=== PATIENT | female | born 1940 | race Caucasian/White ===

== ENCOUNTER 2017-04-19 12:07 | Emergency (ER) | payer MEDICARE ==
[~2017-04-19] VITALS: Ht 157.5 cm; Wt 61.2 kg
[~2017-04-19 12:07] MED LIST: ARTHRITIS PAIN650 MG PO; ASPI81CH; ATEN25; B-121500 MCG PO; CALCAVITDA PO; CARI350; CARI350 PO; CODACE30 PO; DIPATR PO; ERGO400 PO; FERR325 PO; FISH1000 PO; GABA100 PO; GLIM4 PO; GLYB5; GUAI600T33 PO; HYDR1TAB94 PO; IPRA.03NI; LISI20; LOSARTAN POTAS100 MG PO; LOVA40; METF500; METF850 PO; METO25 PO; Multiple Vitam1 EAC1 PO; Nortriptyline H10 MG PO; OLME20; OMEP20ER PO; PAIN RELIEVER500 MG PO; PARO20; PAXIL40 MG PO; PHENA200 PO; PROACE100; PROACE100 PO; PROM25 PO; ROSI4; RXPHEN200 PO; RXSULTRIDS PO; SULTRIDS PO; Simvastatin20 MG PO; TURMERIC500 MG PO
== END 2017-04-19 14:30 | disposition home or self-care (01) ==
LOC: ER 12:07
DX: S06.0X9A Concussion with loss of consciousness of unspecified duration, initial encounter (principal); S00.11XA Contusion of right eyelid and periocular area, initial encounter; E11.9 Type 2 diabetes mellitus without complications; Z90.49 Acquired absence of other specified parts of digestive tract; Z90.710 Acquired absence of both cervix and uterus; W19.XXXA Unspecified fall, initial encounter
CPT/HCPCS: 70450; 99284

== ENCOUNTER → 2018-05-27 | Outpatient (CLI) | payer MEDICARE | END | disposition home or self-care (01) | LOC: PLD 07:43 → LAB SHORT 07:43 | DX: D04.71 Carcinoma in situ of skin of right lower limb, including hip (principal) | CPT/HCPCS: 88305 ==

== ENCOUNTER 2018-08-12 22:28 | Emergency (ER) | payer MEDICARE ==
[~2018-08-12] VITALS: Ht 154.9 cm; Wt 59.0 kg
[2018-08-12 23:11] LABS: BASOPHILS ABSOLUTE AUTO 0.05 K/mm3 (0.00-0.23); BASOPHILS PERCENT AUTO 1 % (0-2); EOSINOPHILS ABSOLUTE AUTO 0.01 K/mm3 (0.00-0.68); EOSINOPHILS PERCENT AUTO 0 % (0-6); Hematocrit 34.2 % (33.0-51.0); Hemoglobin 11.2 g/dL (11.5-16.0); IMMATURE GRAN ABSOLUTE AUTO 0.08 K/mm3 (0.00-0.10); IMMATURE GRAN PERCENT AUTO 1 % (0-1); LYMPHOCYTES ABSOLUTE AUTO 0.26 K/mm3 (0.84-5.20); LYMPHOCYTES PERCENT AUTO 3 % (21-46); MONOCYTES ABSOLUTE AUTO 0.74 K/mm3 (0.16-1.47); MONOCYTES PERCENT AUTO 8 % (4-13); Mean Corpuscular HGB 32.4 pg (26.0-34.0); Mean Corpuscular HGB Conc 32.7 g/dL (31.5-36.5); Mean Corpuscular Volume 99 fL (80-100); Mean Platelet Volume 9.9 fL (9.1-12.4); NEUTROPHILS ABSOLUTE AUTO 7.93 K/mm3 (1.96-9.15); NEUTROPHILS PERCENT AUTO 87 % (41-73); Platelet Count 307 K/mm3 (150-400); RDW Coefficient Variation 13.4 % (11.7-14.2); RDW Standard Deviation 48.4 fL (35.1-46.3); Red Blood Cell Count 3.46 M/mm3 (3.80-5.20); White Blood Cell Count 9.07 K/mm3 (4.00-11.30)
[2018-08-12 23:30] LABS: Alanine Aminotransfer (ALT/SGP 56 U/L (12-78); Albumin/Globulin Ratio 1.1 (0.8-1.8); Alk Phos 115 U/L (50-136); Anion Gap 12 mmol/L (6-16); Aspartate Aminotrans (AST/SGOT 27 U/L (12-37); Bilirubin, Total 0.3 mg/dL (0.1-1.0); Blood Urea Nitrogen 28 mg/dL (8-24); Bun/Creatinine Ratio 32.9 (12.0-20.0); CO2, Blood 19 mmol/L (21-32); Calcium, Blood 8.7 mg/dL (8.5-10.1); Chloride, Blood 108 mmol/L (98-108); Creatinine, Blood 0.85 mg/dL (0.40-1.00); Globulin, Blood 3.7 g/dL (2.2-4.0); Glomerular Filtration Rate >60 (60-); Glucose, Blood 262 mg/dL (70-99); Potassium, Blood 4.2 mmol/L (3.5-5.5); Sodium, Blood 139 mmol/L (136-145); Total Protein, Blood 7.7 g/dL (6.4-8.2)
[2018-08-12] MEDS ORDERED: GLIM4 PO (23:51)
[2018-08-12] MEDS ORDERED: METO25ER PO (23:51)
[2018-08-12] MEDS ORDERED: LOSA50 PO (23:51)
[2018-08-12] MEDS ORDERED: VENL75ER PO (23:51)
[2018-08-12] MEDS ORDERED: METF500 PO (23:51)
[2018-08-12] MEDS ORDERED: SIMV10 PO (23:52)
[2018-08-12] MEDS ORDERED: OMEPRAZOLE MAGN20 MG PO (23:52)
[2018-08-12] MEDS ORDERED: Nortriptyline H10 MG PO (23:52)
[2018-08-12] MEDS ORDERED: GABA100 PO (23:52)
[2018-08-12] MEDS ORDERED: Primidone50 MG PO (23:53)
[2018-08-12] MEDS ORDERED: MELO7.5 PO (23:53)
[2018-08-12] MEDS ORDERED: LATANOPROST2.5 ML BOTHEYES (23:53)
[2018-08-12] MEDS ORDERED: ASPI81CH PO (23:53)
[2018-08-12] MEDS ORDERED: Multivitamin1 EAC1 PO (23:54)
[2018-08-12] MEDS ORDERED: Ferrous Sulfat325 M2 PO (23:54)
[2018-08-12] MEDS ORDERED: FISH OIL 1,0001 EAC1 PO (23:55)
[2018-08-12] MEDS ORDERED: CHOL10002 PO (23:55)
[2018-08-12] MEDS ORDERED: VITAMIN B125000 MCG PO (23:56)
[2018-08-12] MEDS ORDERED: BIOTIN5000 MCG PO (23:56)
[2018-08-13] MEDS ORDERED: ONDA4ODT MM (02:02)
[2018-08-13] MEDS ORDERED: METO5A PO (19:51)
[2018-08-13] MEDS ORDERED: Cipro500 MG PO (19:51)
== END 2018-08-13 03:11 | disposition home or self-care (01) ==
LOC: ER 22:28
PROVIDERS: Physician Assistant
DX: R11.2 Nausea with vomiting, unspecified (principal); R19.7 Diarrhea, unspecified; E11.9 Type 2 diabetes mellitus without complications; E78.5 Hyperlipidemia, unspecified; I10 Essential (primary) hypertension; K21.9 Gastro-esophageal reflux disease without esophagitis
CPT/HCPCS: 80053; 82947; 83690; 85025; 93005; 93010; 96361; 96374; 96375; 99284-25; A9270-GY; J2405; J2765; J7120

== ENCOUNTER 2018-09-15 06:40 | Day surgery (SDC) | payer MEDICARE ==
[~2018-09-15] VITALS: Ht 154.9 cm; Wt 61.0 kg
[~2018-09-15 06:40] MED LIST changes: +ASPI81CH PO; +BIOTIN5000 MCG PO; +CHOL10002 PO; +Cipro500 MG PO; +FISH OIL 1,0001 EAC1 PO; +Ferrous Sulfat325 M2 PO; +LATANOPROST2.5 ML BOTHEYES; +LOSA50 PO; +MELO7.5 PO; +METF500 PO; +METO25ER PO; +METO5A PO; +Micro-K10 MEQ PO; +Multivitamin1 EAC1 PO; +OMEPRAZOLE MAGN20 MG PO; +ONDA4ODT MM; +Primidone50 MG PO; +SIMV10 PO; +VENL75ER PO; +VITAMIN B125000 MCG PO
--- NOTE | 2018-09-15 07:18 | NUR ---
09/15/18 0718 Sandee Wood LATE ENTRY: NOTIFIED DR SANCHES OF [facility] [place] [facility] AT 0707, ORDERS WERE GIVEN AND ADMINISTERED SEE EMAR.
== END 2018-09-15 08:35 | disposition home or self-care (01) ==
LOC: ORSCSDS 06:40
PROVIDERS: Ophthalmology
PROC: 08RK3JZ Replacement of Left Lens with Synthetic Substitute, Percutaneous Approach (ICD-10-PCS; principal; 2018-09-15 08:00)
DX: H25.12 Age-related nuclear cataract, left eye (principal); I10 Essential (primary) hypertension; G47.33 Obstructive sleep apnea (adult) (pediatric); E11.9 Type 2 diabetes mellitus without complications; K21.9 Gastro-esophageal reflux disease without esophagitis; Z79.899 Other long term (current) drug therapy; Z79.82 Long term (current) use of aspirin
CPT/HCPCS: 82947; J2001; J2250; J3010; J3301; J7799; V2632

== ENCOUNTER 2018-09-29 07:00 | Day surgery (SDC) | payer MEDICARE ==
[~2018-09-29] VITALS: Ht 154.9 cm; Wt 59.9 kg
== END 2018-09-29 09:13 | disposition home or self-care (01) ==
LOC: ORSCSDS 07:00
PROVIDERS: Ophthalmology
PROC: 08RJ3JZ Replacement of Right Lens with Synthetic Substitute, Percutaneous Approach (ICD-10-PCS; principal; 2018-09-29 08:30)
DX: H25.11 Age-related nuclear cataract, right eye (principal); I10 Essential (primary) hypertension; E11.9 Type 2 diabetes mellitus without complications; Z79.899 Other long term (current) drug therapy; Z79.82 Long term (current) use of aspirin
CPT/HCPCS: 82947; J2001; J2250; J3010; J3301; J7120; V2632

== ENCOUNTER 2019-08-04 07:20 | Day surgery (SDC) | payer MEDICARE ==
[~2019-08-04] VITALS: Ht 154.9 cm; Wt 62.6 kg
--- NOTE | 2019-08-04 07:58 | NUR ---
PT ADMITTED TO [facility]. AGREES WITH PLANNED SURGERY. LUNG SOUNDS CLEAR.
--- NOTE | 2019-08-04 10:35 | NUR ---
Patient up to Ambulate independently. Gait steady. Discharge instructions reviewed with patient. Patient verbalizes understanding. Copy given to patient to take home. Patient States Post-Procedure ride home has been arranged. Discharged via wheelchair to private car for ride home.
--- NOTE | 2019-08-05 10:11 | NUR ---
08/05/19 1011 Zohra Mckenzie VERIFICATIONS: EDIT CHART.
== END 2019-08-04 10:48 | disposition home or self-care (01) ==
LOC: ORSCMMR 07:20 → ORD 09:00 → ORSCMMR 09:00
PROVIDERS: Orthopaedic Surgery
PROC: 01N50ZZ Release Median Nerve, Open Approach (ICD-10-PCS; principal; 2019-08-04 09:00)
DX: G56.01 Carpal tunnel syndrome, right upper limb (principal); I10 Essential (primary) hypertension; E11.9 Type 2 diabetes mellitus without complications; G47.33 Obstructive sleep apnea (adult) (pediatric); J45.909 Unspecified asthma, uncomplicated; Z79.899 Other long term (current) drug therapy; Z79.82 Long term (current) use of aspirin
CPT/HCPCS: 82947; J2704; J7120

== ENCOUNTER 2019-11-30 19:17 | Emergency (ER) | payer MEDICARE ==
[~2019-11-30] VITALS: Ht 154.9 cm; Wt 61.2 kg
[2019-11-30 19:50] LABS: BASOPHILS ABSOLUTE AUTO 0.09 K/mm3 (0.00-0.23); BASOPHILS PERCENT AUTO 1 % (0-2); EOSINOPHILS ABSOLUTE AUTO 0.37 K/mm3 (0.00-0.68); EOSINOPHILS PERCENT AUTO 5 % (0-6); Hematocrit 30.9 % (33.0-51.0); Hemoglobin 10.2 g/dL (11.5-16.0); IMMATURE GRAN ABSOLUTE AUTO 0.13 K/mm3 (0.00-0.10); IMMATURE GRAN PERCENT AUTO 2 % (0-1); LYMPHOCYTES ABSOLUTE AUTO 1.92 K/mm3 (0.84-5.20); LYMPHOCYTES PERCENT AUTO 23 % (21-46); MONOCYTES ABSOLUTE AUTO 1.04 K/mm3 (0.16-1.47); MONOCYTES PERCENT AUTO 13 % (4-13); Mean Corpuscular HGB 32.3 pg (26.0-34.0); Mean Corpuscular Volume 98 fL (80-100); Mean Platelet Volume 9.2 fL (9.1-12.4); NEUTROPHILS PERCENT AUTO 57 % (41-73); Platelet Count 307 K/mm3 (150-400); RDW Coefficient Variation 14.6 % (11.7-14.2); RDW Standard Deviation 52.9 fL (35.1-46.3); Red Blood Cell Count 3.16 M/mm3 (3.80-5.20); White Blood Cell Count 8.25 K/mm3 (4.00-11.30)
[2019-11-30 20:23] LABS: Albumin, Blood 3.9 g/dL (3.4-5.0); Albumin/Globulin Ratio 1.1 (0.8-1.8); Bilirubin, Total 0.5 mg/dL (0.1-1.0); Bun/Creatinine Ratio 22.1 (12.0-20.0); Calcium, Blood 8.8 mg/dL (8.5-10.1); Creatinine, Blood 1.04 mg/dL (0.40-1.00); Globulin, Blood 3.4 g/dL (2.2-4.0); Magnesium, Blood 2.1 mg/dL (1.6-2.4); Potassium, Blood 4.2 mmol/L (3.5-5.5); Total Protein, Blood 7.3 g/dL (6.4-8.2)
[2019-11-30] MEDS ORDERED: Baclofen10 MG PO (21:11)
== END 2019-11-30 21:26 | disposition home or self-care (01) ==
LOC: ER 19:17
PROVIDERS: Physician Assistant
DX: M62.838 Other muscle spasm (principal); Z88.0 Allergy status to penicillin; Z88.8 Allergy status to other drugs, medicaments and biological substances; Z79.84 Long term (current) use of oral hypoglycemic drugs; Z79.899 Other long term (current) drug therapy; Z79.82 Long term (current) use of aspirin; E11.9 Type 2 diabetes mellitus without complications; I10 Essential (primary) hypertension; K21.9 Gastro-esophageal reflux disease without esophagitis; D64.9 Anemia, unspecified; E78.5 Hyperlipidemia, unspecified
CPT/HCPCS: 36415; 80053; 83735; 85025; 99283

== ENCOUNTER 2020-08-28 23:42 | Emergency (ER) | payer MEDICARE ==
[~2020-08-28] VITALS: Ht 165.1 cm; Wt 63.5 kg
[~2020-08-28 23:42] MED LIST changes: +Baclofen10 MG PO
== END 2020-08-29 01:45 | disposition home or self-care (01) ==
LOC: ER 23:42
DX: S00.83XA Contusion of other part of head, initial encounter (principal); Z88.0 Allergy status to penicillin; Z88.1 Allergy status to other antibiotic agents; Z79.899 Other long term (current) drug therapy; Z79.82 Long term (current) use of aspirin; W01.190A Fall on same level from slipping, tripping and stumbling with subsequent striking against furniture, initial encounter; Y92.009 Unspecified place in unspecified non-institutional (private) residence as the place of occurrence of the external cause
CPT/HCPCS: 70450; 72125; 73560-LT; 99284-25; A9270

== ENCOUNTER → 2021-04-16 | Outpatient (CLI) | payer MEDICARE | END | disposition home or self-care (01) | LOC: LAB SHORT 08:22 | DX: B07.9 Viral wart, unspecified (principal) | CPT/HCPCS: 88305 ==

== ENCOUNTER 2021-10-14 10:24 | Emergency (ER) | payer MEDICARE ==
[~2021-10-14] VITALS: Ht 154.9 cm; Wt 58.5 kg
== END 2021-10-14 12:12 | disposition home or self-care (01) ==
LOC: ER 10:24
DX: R04.0 Epistaxis (principal); I10 Essential (primary) hypertension; E11.9 Type 2 diabetes mellitus without complications; E78.5 Hyperlipidemia, unspecified; K21.9 Gastro-esophageal reflux disease without esophagitis; Z79.84 Long term (current) use of oral hypoglycemic drugs; Z88.0 Allergy status to penicillin; Z88.1 Allergy status to other antibiotic agents; Z79.899 Other long term (current) drug therapy
CPT/HCPCS: 99283

== ENCOUNTER 2022-06-21 23:35 | Inpatient (IN) | payer MEDICARE ==
[~2022-06-21] VITALS: Ht 154.9 cm; Wt 55.2 kg
[2022-06-21 23:58] LABS: BASOPHILS ABSOLUTE AUTO 0.17 K/mm3 (0.00-0.23); BASOPHILS PERCENT AUTO 1 % (0-2); EOSINOPHILS ABSOLUTE AUTO 0.38 K/mm3 (0.00-0.68); EOSINOPHILS PERCENT AUTO 3 % (0-6); Hematocrit 32.1 % (33.0-51.0); Hemoglobin 10.5 g/dL (11.5-16.0); IMMATURE GRAN ABSOLUTE AUTO 0.52 K/mm3 (0.00-0.10); IMMATURE GRAN PERCENT AUTO 4 % (0-1); LYMPHOCYTES ABSOLUTE AUTO 1.72 K/mm3 (0.84-5.20); LYMPHOCYTES PERCENT AUTO 13 % (21-46); MONOCYTES ABSOLUTE AUTO 1.46 K/mm3 (0.16-1.47); MONOCYTES PERCENT AUTO 11 % (4-13); Mean Corpuscular HGB 31.1 pg (26.0-34.0); Mean Corpuscular HGB Conc 32.7 g/dL (31.5-36.5); Mean Corpuscular Volume 95 fL (80-100); Mean Platelet Volume 9.7 fL (9.1-12.4); NEUTROPHILS ABSOLUTE AUTO 8.85 K/mm3 (1.96-9.15); NEUTROPHILS PERCENT AUTO 68 % (41-73); NRBC ABSOLUTE 0.02 K/mm3 (0.00-0.02); NRBC Auto 0.2 /100 WBC (0.0-0.2); Platelet Count 326 K/mm3 (150-400); RDW Coefficient Variation 18.3 % (11.7-14.2); Red Blood Cell Count 3.38 M/mm3 (3.80-5.20)
[2022-06-22 00:16] LABS: Alanine Aminotransfer (ALT/SGP 38 U/L (12-78); Albumin, Blood 3.4 g/dL (3.4-5.0); Alk Phos 152 U/L (50-136); Anion Gap 7 mmol/L (6-16); Aspartate Aminotrans (AST/SGOT 33 U/L (12-37); Bilirubin, Total 0.7 mg/dL (0.1-1.0); Blood Urea Nitrogen 27 mg/dL (8-24); Bun/Creatinine Ratio 32.3 (12.0-20.0); CO2, Blood 25 mmol/L (21-32); Calcium, Blood 9.3 mg/dL (8.5-10.1); Chloride, Blood 98 mmol/L (98-108); Creatinine, Blood 0.84 mg/dL (0.40-1.00); Globulin, Blood 3.5 g/dL (2.2-4.0); Glomerular Filtration Rate 69 (60-); Glucose, Blood 174 mg/dL (70-99); Potassium, Blood 4.5 mmol/L (3.5-5.5); Sodium, Blood 130 mmol/L (136-145); Total Protein, Blood 6.9 g/dL (6.4-8.2)
[2022-06-22] MEDS ORDERED: DILTIAZEM 24HR240 M3 PO (01:43)
[2022-06-22] MEDS ORDERED: DIGOX125 MC1 PO ×2 (01:43→01:49)
[2022-06-22] MEDS ORDERED: LOSARTAN POTASS25 M2 PO (01:43)
[2022-06-22] MEDS ORDERED: ASPI81CH PO (01:43)
[2022-06-22] MEDS ORDERED: FUROSEMIDE20 MG PO (01:43)
[2022-06-22] MEDS ORDERED: GLIMEPIRIDE4 MG PO (01:43)
[2022-06-22] MEDS ORDERED: METOPROLOL TART25 MG PO (01:43)
[2022-06-22] MEDS ORDERED: TOPI25 PO (01:44)
[2022-06-22] MEDS ORDERED: MUPIROCIN2210 TP (01:44)
[2022-06-22] MEDS ORDERED: VENLAFAXINE HC225 MG PO (01:44)
[2022-06-22] MEDS ORDERED: PAROEX473 ML MM (01:44)
[2022-06-22] MEDS ORDERED: LATANOPROST2.5 M3 OP (01:44)
[2022-06-22] MEDS ORDERED: ELIQUIS2.5 MG PO (01:46)
[2022-06-22] MEDS ORDERED: EYLEA2 MG/0.02 UD (01:46)
[2022-06-22] MEDS ORDERED: Avastin25 MG/ML (01:47)
[2022-06-22] MEDS ORDERED: BEVACIZUMAB UD (01:47)
[2022-06-22] MEDS ORDERED: THERA-D2000 UNIT PO (01:48)
[2022-06-22] MEDS ORDERED: MERIBIN5 MG PO (01:48)
[2022-06-22] MEDS ORDERED: CYTO-Q T/F8 MG/1 ML PO (01:48)
[2022-06-22] MEDS ORDERED: B-12500 MC2 PO (01:49)
[2022-06-22] MEDS ORDERED: FERSU300 PO (01:50)
[2022-06-22] MEDS ORDERED: GLIM4 PO (01:52)
[2022-06-22] MEDS ORDERED: FLONASE ALLERG9.9 ML (01:52)
[2022-06-22] MEDS ORDERED: GABA100 PO (01:52)
[2022-06-22] MEDS ORDERED: LEVOCETIRIZINE D5 MG PO (01:53)
[2022-06-22] MEDS ORDERED: LATANOPROST2.5 M3 BOTHEYES (01:53)
[2022-06-22] MEDS ORDERED: METF500 PO (01:54)
[2022-06-22] MEDS ORDERED: METO25 PO (01:54)
[2022-06-22] MEDS ORDERED: MULVITA PO (01:54)
[2022-06-22] MEDS ORDERED: MAGNESIUM OXID400 M1 PO (01:54)
[2022-06-22] MEDS ORDERED: MUPIROCIN1 G1 TOP (01:55)
[2022-06-22] MEDS ORDERED: NORT10 PO (01:55)
[2022-06-22] MEDS ORDERED: OMEP20ER PO (01:55)
[2022-06-22] MEDS ORDERED: OMEGA-3 + VITA200 ML PO (01:55)
[2022-06-22] MEDS ORDERED: MIRALAX17 GM PO (01:56)
[2022-06-22] MEDS ORDERED: OXYC5 PO (01:56)
[2022-06-22] MEDS ORDERED: SYSTANE BALANCE10 ML BOTHEYES (01:57)
[2022-06-22] MEDS ORDERED: TOPI25C PO (01:57)
[2022-06-22] MEDS ORDERED: VENL75ER PO (01:57)
[2022-06-22] MEDS ORDERED: SENNA LAXATIVE8.6 MG PO (01:57)
[2022-06-22 03:30] VITALS: BP 127/88
[2022-06-22 03:43] LABS: BASOPHILS ABSOLUTE AUTO 0.15 K/mm3 (0.00-0.23); BASOPHILS PERCENT AUTO 1 % (0-2); EOSINOPHILS ABSOLUTE AUTO 0.45 K/mm3 (0.00-0.68); EOSINOPHILS PERCENT AUTO 4 % (0-6); Hemoglobin 11.1 g/dL (11.5-16.0); IMMATURE GRAN ABSOLUTE AUTO 0.56 K/mm3 (0.00-0.10); IMMATURE GRAN PERCENT AUTO 5 % (0-1); LYMPHOCYTES ABSOLUTE AUTO 1.74 K/mm3 (0.84-5.20); LYMPHOCYTES PERCENT AUTO 14 % (21-46); MONOCYTES ABSOLUTE AUTO 1.51 K/mm3 (0.16-1.47); MONOCYTES PERCENT AUTO 12 % (4-13); Mean Corpuscular HGB 31.2 pg (26.0-34.0); Mean Corpuscular HGB Conc 32.6 g/dL (31.5-36.5); Mean Corpuscular Volume 96 fL (80-100); Mean Platelet Volume 9.6 fL (9.1-12.4); NEUTROPHILS ABSOLUTE AUTO 8.02 K/mm3 (1.96-9.15); NEUTROPHILS PERCENT AUTO 65 % (41-73); NRBC ABSOLUTE 0.02 K/mm3 (0.00-0.02); NRBC Auto 0.2 /100 WBC (0.0-0.2); Platelet Count 310 K/mm3 (150-400); RDW Coefficient Variation 18.3 % (11.7-14.2); RDW Standard Deviation 63.1 fL (35.1-46.3); Red Blood Cell Count 3.56 M/mm3 (3.80-5.20); White Blood Cell Count 12.43 K/mm3 (4.00-11.30)
[2022-06-22 04:12] LABS: Thyroid Stimulating Hormone 8.23 uIU/mL (0.360-4.800)
[2022-06-22 04:13] LABS: Albumin, Blood 3.4 g/dL (3.4-5.0); Bilirubin, Total 0.8 mg/dL (0.1-1.0); Bun/Creatinine Ratio 31.2 (12.0-20.0); Calcium, Blood 9.4 mg/dL (8.5-10.1); Creatinine, Blood 0.86 mg/dL (0.40-1.00); Globulin, Blood 3.4 g/dL (2.2-4.0); Potassium, Blood 4.5 mmol/L (3.5-5.5); Total Protein, Blood 6.8 g/dL (6.4-8.2)
--- NOTE | 2022-06-22 06:57 | NUR ---
PANEL MACHINE OPERATOR SUMMARY ASSUMED CARE OF THE PT AT 0317 UPON ADMIT FROM ED. SHE IS ALERT AND ORIENTED BUT APPEARS FORGETFUL AND IS UNABLE TO TELL THIS RN DETAILS FOR ADMIT. SHE IS ABLE TO STAND WITH ASSIST SHE HAS BEEN USING A WALKER AT HOME FOLLOWING HER VALVE REPLACEMENT SURGERY. INCISION APPEARS INTACT AND WITHOUT SIGNS OF INFECTION. NO CHEST PAIN. HR BEGAN TRENDING UPWARDS AGAIN SO ORDER FOR 2.5 MG LOPRESSOR PUSH OBTAINED AND ADMINISTERED THIS MORNING. VSS OTHERWISE.
[2022-06-22 07:22] VITALS: BP 158/100
--- NOTE | 2022-06-22 07:30 | NUR ---
AM NOTE Pt alert, oriented X4; calm and cooperative with care. Pt resting in bed, reposition self. Pt denies pain, chest pain/pressure, nauses, dizziness and numb/tingling. Pt reports sob, spo2 at 100%, breathing is even and unlabored. Tele afib 100-120's, bp elevated but stable. Abd soft, nontender with +bt X4. Ble trace edema noted. Vss. No other acute changes noted. Will continue to monitor.
[2022-06-22 11:38] VITALS: BP 130/79
[2022-06-22 16:01] VITALS: BP 144/79
--- NOTE | 2022-06-22 18:36 | NUR ---
Shift Summary Tele 110-140's this am prior to medications, pt averaging 90-110's this afternoon. Bp elevated, stable. Other vss. No other acute changes noted. Will continue to monitor.
[2022-06-22 20:07] VITALS: BP 143/98
[2022-06-23] VITALS (8 sets, daily range): BP systolic 113–146; BP diastolic 66–89
[2022-06-23 04:11] LABS: Albumin, Blood 3.4 g/dL (3.4-5.0); Bilirubin, Total 0.7 mg/dL (0.1-1.0); Bun/Creatinine Ratio 28.1 (12.0-20.0); Calcium, Blood 8.9 mg/dL (8.5-10.1); Creatinine, Blood 0.78 mg/dL (0.40-1.00); Free Thyroxine 1.47 ng/dL (0.70-1.60); Globulin, Blood 3.3 g/dL (2.2-4.0); Potassium, Blood 3.8 mmol/L (3.5-5.5); Total Protein, Blood 6.7 g/dL (6.4-8.2)
--- NOTE | 2022-06-23 06:53 | NUR ---
BELLMAN CAPTAIN SUMMARY ASSUMED CARE OF THE PT AT 1900. SHE IS ALERT AND ORIENTED X3, THOUGH SOMETIMES FORGETFUL, WHICH SHE SAYS IS BASELINE. PT UP WITH SBA AND FWW. SHE HAS BEEN AFIB BETWEEN THE 100S AND 150S ON TELE, THOUGH TRENDING IN THE 110S. PT BP STABLE. SATURATIONS >92%. SLEEPING THROUGHOUT THE SHIFT. NO CHEST PAIN. REQUESTING TO GO HOME.
--- NOTE | 2022-06-23 08:58 | NUR ---
AM NOTE PT ALERT AND AMBULATING TO THE RESTROOM TO URINATE. PT AMBUILATING WITH WALKER WITHOUT ASSISTANCE, GAIT STEADY. PT IS A&OX4, DENIES CP, SOB, NUMBNESS/TINGING OR NAUSEA. TELE AFIB RANGING FROM 110-140'S. PT IS MEDICATED PER MAR. CURRENTLY SITTING IN BED, EATING BREAKFAST WITH DISTRESS. PT ABMBULATED TO RESTROOM TO BRUSH HER TEETH AND HER HR SPIKED TO A CONSISTANT 160'S AFIB. RETURNED TO 100-110'S AFIB, WITH 2MIN REST.
[2022-06-23] MEDS ORDERED: METO50ER PO (09:58)
[2022-06-23] MEDS ORDERED: Acetaminophen650 M1 PO (10:01)
--- NOTE | 2022-06-23 17:34 | NUR ---
SHIFT SUMMARY FOLLOWING THE INCREASED HEART RATE IN THE 160'S, HOSPITALIST REQUEST CARDIO CONSULT. DR DELACRUZ EVALUATED PT AND ORDERED ECHO AND EKG @ 0500. AFTER UPDATED MEDS, PER MAY, RATE HAS REMAINED BELOW 90 BPM. WILL CONTINUE TO MONITOR.
--- NOTE | 2022-06-23 18:41 | NUR ---
I have reviewed the nursing assoc documentation and am in agreement.
[2022-06-24 04:37] VITALS: BP 136/59
--- NOTE | 2022-06-24 05:34 | NUR ---
SHIFT SUMMARY A/Ox4 AND COOPERATIVE WITH CARE PROVIDED BY MEMEBERS OF STAFF. ABLE TO ANSWER QUESTIONS APPROPRIATLEY WELL MAKE NEEDS KNOWN. NO ACUTE EVENTS OVER NIGHT FOR PT SLEPT T/O MOST OF THE SHIFT. CONTINUES TO BE IN AFIB 80-90'S WITH NO REPORTS OF CP OR PRESSURE T/O THE NIGHT. HR CAN INCREASE TO 100-120'S W/AMBULATION HOWEVER. EKG PERFORMED THIS MORNING, BP CONTINUES TO BE STABLE. MAINTAINS SPO2 >94% ON RA WITH NO SOB OR DYSPNEA REPORTED. NO REPORTS OF PAIN. ABLE TO ABULATE WITH SBA TO BSC TO VOID. RECEIVED ECHO 06/23/22, BUT RESULTS ARE NOT AVAILABLE OF THIS NOTE. NO NEW ORDERS AT THIS TIME, WILL REPORT TO DAYSHIFT RN. ALICE WILEY T/O THE SHIFT
[2022-06-24 07:59] VITALS: BP 137/79
[2022-06-24] MEDS ORDERED: SOAANZ20 M1 PO (11:04)
[2022-06-24] MEDS ORDERED: ALDACTONE25 MG PO (11:05)
--- NOTE | 2022-06-24 11:16 | NUR ---
AM NOTE PT IS ALERT AND SITTING UP IN THE ROOM WAITING FOR BREAKFAST. SHE HAS ALREADY HAD AN ECHO PERFORMED AND DR DELACRUZ HAS REVIEWED THE RESULTS AND DETERMINED HER TO BE SUITABLE FOR DISCHARGE. PTS LUNG SOUNDS ARE CTA. DENIES CHEST PAIN OR PRESSURE, SHORTNESS OF BREATH, NAUSEA, OR DIZZINESS. PT DENIES ANY NEEDS AT THIS TIME. WILL CONTINUE TO MONITOR.
[2022-06-24 12:38] VITALS: BP 141/63
--- NOTE | 2022-06-24 13:15 | NUR ---
DISCHARGE NOTE PT VS REMAINED STABLE UP TO THE POINT OF D/C. PIV AND TELEMTRY REMOVED. PT EDUCATED ABOUT THE IMPORTANCE OF FOLLOW-UP APPOINTMENTS WITH PCP AND CARDIOLOGY. INFORMED TO NOTIFTY PCP IF THERE ARE NEW ISSUES THAT NEED TO BE ADRESSED. ADVISED TO RETURN TO THE EMERGENCY DEPARTMENT IF SHE EXPERIENCES CHEST PAIN, SHORTNESS OF BREATH, OR DIZZINESS. DISSCUSED WITH PT AND FAMILY CHANGES IN HER MEDICATION REGIEME, AND WERE RECPETIVE TO THE CHANGES AND EDUCATION. PT LEFT THE UNIT VIA WHEELCHAIR, ACCOMPANIED BY THIS LOGGING OPERATIONS INSPECTOR.
--- NOTE | 2022-06-24 17:57 | NUR ---
I HAVE REVEIWED THE NURSING STUDENTS DOCUMENTATION AND AM IN AGREEMENT
== END 2022-06-24 12:59 | disposition home health service (06) | DRG 291 ==
LOC: ER 23:35 → PCU 23:36
PROVIDERS: Emergency Medicine; Family Medicine; ADMIT Internal Medicine
DX: I13.0 Hypertensive heart and chronic kidney disease with heart failure and stage 1 through stage 4 chronic kidney disease, or unspecified chronic kidney disease (principal); I50.23 Acute on chronic systolic (congestive) heart failure; I48.19 Other persistent atrial fibrillation; E87.1 Hypo-osmolality and hyponatremia; Z66 Do not resuscitate; R79.89 Other specified abnormal findings of blood chemistry; D72.829 Elevated white blood cell count, unspecified; F41.8 Other specified anxiety disorders; E78.5 Hyperlipidemia, unspecified; K21.9 Gastro-esophageal reflux disease without esophagitis; E11.22 Type 2 diabetes mellitus with diabetic chronic kidney disease; N18.9 Chronic kidney disease, unspecified; G47.33 Obstructive sleep apnea (adult) (pediatric); D63.1 Anemia in chronic kidney disease; Z87.19 Personal history of other diseases of the digestive system; Z86.010 Personal history of colon polyps; Z79.01 Long term (current) use of anticoagulants; Z79.4 Long term (current) use of insulin; Z98.890 Other specified postprocedural states; Z90.710 Acquired absence of both cervix and uterus; Z95.2 Presence of prosthetic heart valve; Z90.49 Acquired absence of other specified parts of digestive tract; Z98.42 Cataract extraction status, left eye; Z98.41 Cataract extraction status, right eye; Z88.0 Allergy status to penicillin; Z88.8 Allergy status to other drugs, medicaments and biological substances; Z79.84 Long term (current) use of oral hypoglycemic drugs; Z79.899 Other long term (current) drug therapy; Z79.82 Long term (current) use of aspirin
CPT/HCPCS: 36415; 71045; 80053; 80162; 82947; 83880; 84439; 84443; 84484; 85025; 93005; 93010; 93306; 96374; 99285-25; A9270

== ENCOUNTER 2022-06-29 01:45 | Inpatient (IN) | payer MEDICARE ==
[~2022-06-29] VITALS: Ht 154.9 cm; Wt 55.5 kg
[~2022-06-29 01:45] MED LIST changes: +ALDACTONE25 MG PO; +Acetaminophen650 M1 PO; +Avastin25 MG/ML; +B-12500 MC2 PO; +BEVACIZUMAB UD; +CYTO-Q T/F8 MG/1 ML PO; +DIGOX125 MC1 PO; +DILTIAZEM 24HR240 M3 PO; +ELIQUIS2.5 MG PO; +EYLEA2 MG/0.02 UD; +FERSU300 PO; +FLONASE ALLERG9.9 ML; +FUROSEMIDE20 MG PO; +GLIMEPIRIDE4 MG PO; +LATANOPROST2.5 M3 BOTHEYES; +LATANOPROST2.5 M3 OP; +LEVOCETIRIZINE D5 MG PO; +LOSARTAN POTASS25 M2 PO; +MAGNESIUM OXID400 M1 PO; +MERIBIN5 MG PO; +METO50ER PO; +METOPROLOL TART25 MG PO; +MIRALAX17 GM PO; +MULVITA PO; +MUPIROCIN1 G1 TOP; +MUPIROCIN2210 TP; +NORT10 PO; +OMEGA-3 + VITA200 ML PO; +OXYC5 PO; +PAROEX473 ML MM; +SENNA LAXATIVE8.6 MG PO; +SOAANZ20 M1 PO; +SYSTANE BALANCE10 ML BOTHEYES; +THERA-D2000 UNIT PO; +TOPI25 PO; +TOPI25C PO; +VENLAFAXINE HC225 MG PO
[2022-06-29 02:28] LABS: BASOPHILS ABSOLUTE AUTO 0.12 K/mm3 (0.00-0.23); BASOPHILS PERCENT AUTO 1 % (0-2); EOSINOPHILS ABSOLUTE AUTO 0.33 K/mm3 (0.00-0.68); EOSINOPHILS PERCENT AUTO 3 % (0-6); Hematocrit 31.4 % (33.0-51.0); Hemoglobin 10.6 g/dL (11.5-16.0); IMMATURE GRAN PERCENT AUTO 4 % (0-1); LYMPHOCYTES ABSOLUTE AUTO 1.68 K/mm3 (0.84-5.20); LYMPHOCYTES PERCENT AUTO 13 % (21-46); MONOCYTES ABSOLUTE AUTO 1.19 K/mm3 (0.16-1.47); MONOCYTES PERCENT AUTO 9 % (4-13); Mean Corpuscular HGB 31.5 pg (26.0-34.0); Mean Corpuscular HGB Conc 33.8 g/dL (31.5-36.5); Mean Corpuscular Volume 94 fL (80-100); Mean Platelet Volume 9.9 fL (9.1-12.4); NEUTROPHILS PERCENT AUTO 72 % (41-73); NRBC ABSOLUTE 0.03 K/mm3 (0.00-0.02); NRBC Auto 0.2 /100 WBC (0.0-0.2); Platelet Count 349 K/mm3 (150-400); RDW Coefficient Variation 17.9 % (11.7-14.2); RDW Standard Deviation 60.4 fL (35.1-46.3); Red Blood Cell Count 3.36 M/mm3 (3.80-5.20); White Blood Cell Count 13.42 K/mm3 (4.00-11.30)
[2022-06-29 03:08] LABS: Albumin, Blood 3.4 g/dL (3.4-5.0); Bilirubin, Total 0.7 mg/dL (0.1-1.0); Calcium, Blood 9.1 mg/dL (8.5-10.1); Creatinine, Blood 1.23 mg/dL (0.40-1.00); Globulin, Blood 3.4 g/dL (2.2-4.0); Magnesium, Blood 1.2 mg/dL (1.6-2.4); Total Protein, Blood 6.8 g/dL (6.4-8.2)
[2022-06-29 03:17] LABS: International Normalized Ratio 1.15
[2022-06-29 03:28] LABS: Source, Urine Straight Cath
[2022-06-29 03:35] LABS: Bilirubin, Urine Neg (Neg); Blood, Urine Neg (Neg); Glucose Qualitative, Urine Neg (Neg); Ketones, Urine Neg (Neg); Leukocyte Esterase, Urine Neg (Neg); Nitrite, Urine Neg (Neg); Protein, Urine Neg (Neg); Specific Gravity, Urine 1.005 (1.003-1.022); Urobilinogen, Urine NORM (Normal)
[2022-06-29 03:36] LABS: Appearance, Urine Clear (Clear); Color, Urine Yellow (P-Yellow)
[2022-06-29 03:42] LABS: Influenza A, PCR NEGATIVE (NEGATIVE); Influenza B, PCR NEGATIVE (NEGATIVE); Resp Syncytial Virus, PCR NEGATIVE (NEGATIVE); SARS-Cov-2 (COVID-19) PCR, MMC NEGATIVE (NEGATIVE)
[2022-06-29] MEDS ORDERED: JANTOVEN2 MG PO (05:25)
[2022-06-29] MEDS ORDERED: JANTOVEN1 M2 PO (05:26)
[2022-06-29 05:48] LABS: BASOPHILS ABSOLUTE AUTO 0.11 K/mm3 (0.00-0.23); BASOPHILS PERCENT AUTO 1 % (0-2); EOSINOPHILS ABSOLUTE AUTO 0.45 K/mm3 (0.00-0.68); EOSINOPHILS PERCENT AUTO 3 % (0-6); Hematocrit 30.7 % (33.0-51.0); Hemoglobin 10.4 g/dL (11.5-16.0); IMMATURE GRAN PERCENT AUTO 4 % (0-1); LYMPHOCYTES ABSOLUTE AUTO 1.98 K/mm3 (0.84-5.20); LYMPHOCYTES PERCENT AUTO 15 % (21-46); MONOCYTES PERCENT AUTO 10 % (4-13); Mean Corpuscular HGB 31.3 pg (26.0-34.0); Mean Corpuscular HGB Conc 33.9 g/dL (31.5-36.5); Mean Corpuscular Volume 93 fL (80-100); Mean Platelet Volume 9.5 fL (9.1-12.4); NEUTROPHILS ABSOLUTE AUTO 8.72 K/mm3 (1.96-9.15); NEUTROPHILS PERCENT AUTO 67 % (41-73); NRBC ABSOLUTE 0.03 K/mm3 (0.00-0.02); NRBC Auto 0.2 /100 WBC (0.0-0.2); Platelet Count 331 K/mm3 (150-400); RDW Standard Deviation 59.7 fL (35.1-46.3); Red Blood Cell Count 3.32 M/mm3 (3.80-5.20); White Blood Cell Count 13.06 K/mm3 (4.00-11.30)
[2022-06-29 06:15] LABS: Albumin, Blood 3.4 g/dL (3.4-5.0); Bilirubin, Total 0.7 mg/dL (0.1-1.0); Bun/Creatinine Ratio 58.1 (12.0-20.0); Creatinine, Blood 1.05 mg/dL (0.40-1.00); Globulin, Blood 3.3 g/dL (2.2-4.0); Potassium, Blood 4.4 mmol/L (3.5-5.5); Total Protein, Blood 6.7 g/dL (6.4-8.2)
[2022-06-29 06:38] VITALS: BP 94/72
[2022-06-29 15:35] VITALS: BP 99/57
--- NOTE | 2022-06-29 18:12 | NUR ---
SHIFT SUMMARY: PT A&O X4. PT VERY PLEASANT AND COOPERATIVE WITH CARE. PT ABLE TO MAKE NEEDS KNOWN. NS RUNNING @ 75/HR. RECEIVED CALL FROM DAUGHTER THIS AM WANTING AN UPDATE ON HER CONDITION. STATED SHE WANTS PT TO TALK TO DR. DELACRUZ AND WAS NOT DAUGHTER WAS NOT VERY PLEASANT. PT SB ASSIST TO BATHROOM. PT HAVING REGULAR BM'S AND OUTPUT. PT CURRENTLY SITTING UP IN BED EATING DINNER. CALL LIGHT IN REACH. BED IN LOWEST POSITION. WILL CONTINUE TO MONITOR.
[2022-06-29 20:34] VITALS: BP 101/71
[2022-06-30 01:04] VITALS: BP 113/81
[2022-06-30 01:53] VITALS: BP 93/73
--- NOTE | 2022-06-30 05:44 | NUR ---
SHIFT SUMMARY 82 YR F ADMITTED ON 06/29/22 FOR HYPONATREMIA. DNR. PER ACCOUNTING MACHINE OPERATOR, PT HR WAS JUMPING INTO THE 150'S AND 160'S SEVERAL TIMES DURING THIS SHIFT. HOSPITALIST WAS CONTACTED AT APPROX 0030 AND 5 MG IV LOPRESSOR WAS ORDERED TO BE GIVEN RIGHT AWAY. 30 MIN AFTER ADMINISTRATION HR REMAINED VERY HIGH AND ANOTHER DOSE OF LOPRESSOR WAS ORDERED AND ADMINISTERED. PER ACCOUNTING MACHINE OPERATOR, ONLY ONE MORE BRIEF HIGH HR WAS NOTED. PT IS VERY PLEASANT AND COOPERATIVE W/ CARE. SHE C/O HEADACHE AND WAS GIVEN TYLENOL PER EMAR. SHE APPEARS TO HAVE SLEPT WELL FOR THE MAJORITY OF THIS SHIFT.
[2022-06-30 06:03] LABS: International Normalized Ratio 1.13; Prothrombin Time Results 11.8 Sec (9.7-11.5)
[2022-06-30 08:08] VITALS: BP 121/72
[2022-06-30 09:36] LABS: BASOPHILS ABSOLUTE AUTO 0.14 K/mm3 (0.00-0.23); BASOPHILS PERCENT AUTO 1 % (0-2); EOSINOPHILS PERCENT AUTO 3 % (0-6); Hematocrit 36.1 % (33.0-51.0); Hemoglobin 11.6 g/dL (11.5-16.0); IMMATURE GRAN ABSOLUTE AUTO 0.44 K/mm3 (0.00-0.10); IMMATURE GRAN PERCENT AUTO 4 % (0-1); LYMPHOCYTES ABSOLUTE AUTO 0.99 K/mm3 (0.84-5.20); LYMPHOCYTES PERCENT AUTO 9 % (21-46); MONOCYTES ABSOLUTE AUTO 1.46 K/mm3 (0.16-1.47); MONOCYTES PERCENT AUTO 14 % (4-13); Mean Corpuscular HGB 30.8 pg (26.0-34.0); Mean Corpuscular HGB Conc 32.1 g/dL (31.5-36.5); Mean Corpuscular Volume 96 fL (80-100); Mean Platelet Volume 9.5 fL (9.1-12.4); NEUTROPHILS ABSOLUTE AUTO 7.34 K/mm3 (1.96-9.15); NEUTROPHILS PERCENT AUTO 69 % (41-73); NRBC ABSOLUTE 0.02 K/mm3 (0.00-0.02); NRBC Auto 0.2 /100 WBC (0.0-0.2); Platelet Count 333 K/mm3 (150-400); RDW Coefficient Variation 18.6 % (11.7-14.2); RDW Standard Deviation 63.9 fL (35.1-46.3); Red Blood Cell Count 3.77 M/mm3 (3.80-5.20); White Blood Cell Count 10.67 K/mm3 (4.00-11.30)
[2022-06-30 09:54] LABS: Albumin, Blood 3.6 g/dL (3.4-5.0); Bilirubin, Total 0.8 mg/dL (0.1-1.0); Bun/Creatinine Ratio 48.3 (12.0-20.0); Calcium, Blood 9.3 mg/dL (8.5-10.1); Creatinine, Blood 0.93 mg/dL (0.40-1.00); Globulin, Blood 3.5 g/dL (2.2-4.0); Magnesium, Blood 1.9 mg/dL (1.6-2.4); Phosphorus, Blood 3.3 mg/dL (2.5-4.9); Potassium, Blood 4.3 mmol/L (3.5-5.5); Total Protein, Blood 7.1 g/dL (6.4-8.2)
[2022-06-30 15:54] VITALS: BP 116/86
--- NOTE | 2022-06-30 17:35 | NUR ---
SHIFT SUMMARY NO ACUTE CHANGES DURING SHIFT. PT ALERT AND ORIENTED, CALLS APPROPRIATELY. PT REMAINS AFIB, 100-130'S, INCREASED WITH EXERTION. PT REMAINS ON RA, SBA ASSIST WITH FWW TO BATHROOM. METOPROLOL INCREASED TO 100MG BID. NO C/O PAIN, SOB. WILL CONTINUE TO MONITOR. CALL LIGHT WITHIN REACH.
[2022-06-30 19:26] VITALS: BP 104/68
[2022-06-30 20:55] VITALS: BP 114/73
[2022-07-01 01:15] VITALS: BP 134/99
[2022-07-01 05:24] VITALS: BP 123/77
[2022-07-01 06:15] LABS: International Normalized Ratio 1.74; Prothrombin Time Results 17.7 Sec (9.7-11.5)
--- NOTE | 2022-07-01 06:20 | NUR ---
Shift Summary Pt had one episode of SoB accompanied with high HR afib 100-150. Per her chart she had a similar episode last night and rcvd 5 mg IV Lopressor. Pt soon felt better and I requested Telemetry call me if her HR goes to 150 again. Her PO Metropolol ER dose was increased yesterday. Pt also experienced some dizzyness after standing up quickly from the toilet. Advised to stand up slower and wait a few moments before moving on to avoid falls. Pt resumed her recent normal range of Afib 85-130 for the rest of the night. No C/O chest pain or pressure. AOx4, 1 SBA to BR, pleasant and cooperative.
[2022-07-01 06:49] LABS: Bun/Creatinine Ratio 39.6 (12.0-20.0); Calcium, Blood 9.1 mg/dL (8.5-10.1); Creatinine, Blood 0.98 mg/dL (0.40-1.00); Potassium, Blood 4.5 mmol/L (3.5-5.5)
[2022-07-01 07:22] VITALS: BP 129/81
[2022-07-01 15:14] VITALS: BP 130/78
--- NOTE | 2022-07-01 16:25 | NUR ---
SHIFT SUMMARY NO ACUTE CHANGES THIS SHIFT. PATIENT UP W/ 1 ASSIST TO BATHROOM. EATING, DRINKING, & VOIDING WELL. NO EVENTS ON TELE THIS SHIFT. VSS ON RA. DENIED CP/PRESSURE/SOB T/O SHIFT. CALLS APPROPRIATELY, WILL REPORT TO ONCOMING RN AT 1900.
[2022-07-01 19:12] VITALS: BP 119/69
[2022-07-02 04:48] LABS: International Normalized Ratio 2.58; Prothrombin Time Results 25.7 Sec (9.7-11.5)
[2022-07-02 04:55] LABS: Bun/Creatinine Ratio 38.4 (12.0-20.0); Calcium, Blood 9.1 mg/dL (8.5-10.1); Creatinine, Blood 0.83 mg/dL (0.40-1.00); Magnesium, Blood 1.5 mg/dL (1.6-2.4); Potassium, Blood 5.1 mmol/L (3.5-5.5)
--- NOTE | 2022-07-02 05:18 | NUR ---
SHIFT SUMMARY A/OX4, SBA WITH FWW. TELE AFIB 100-120, DENIES CHEST PAIN/PRESSURE. SPO2 >92% ON RA. VSS, NO ACUTE CHANGES AT THIS TIME. BED IN LOWEST POSITION WITH CALL LIGHT IN REACH. WILL CONTINUE TO MONITOR AND REPORT TO ONCOMING RN.
[2022-07-02 07:21] VITALS: BP 103/71
[2022-07-02 15:13] VITALS: BP 102/64
--- NOTE | 2022-07-02 15:20 | NUR ---
Patient doing well today, vitals stable, CBGs ac, SSI given at meals. Extra dose of Metoprolol 50mg given today, and Diltizam given. Plan to control rate. Patient denies cardiac sx. Handoff report given to Margaret FRANCES to assume pt care.
--- NOTE | 2022-07-02 15:30 | NUR ---
1520 ASSUMED CARE OF PATIENT. PT SITTING IN CHAIR AT BEDSIDE DENIES ANY PAIN, SOB OR LIGHTHEADEDNESS. PT REPORTS HAS NO NEEDS AT THIS TIME
--- NOTE | 2022-07-02 18:20 | NUR ---
sitting up in chair eating dinner, pt denies any pain or discomfort, tele shows afib at rate of 79
[2022-07-02 20:39] VITALS: BP 111/67
[2022-07-03 03:30] VITALS: BP 109/62
[2022-07-03 05:35] LABS: Hematocrit 30.9 % (33.0-51.0); Hemoglobin 10.2 g/dL (11.5-16.0); Mean Corpuscular HGB 31.3 pg (26.0-34.0); Mean Corpuscular Volume 95 fL (80-100); Mean Platelet Volume 10.2 fL (9.1-12.4); NRBC ABSOLUTE 0.02 K/mm3 (0.00-0.02); NRBC Auto 0.2 /100 WBC (0.0-0.2); Platelet Count 274 K/mm3 (150-400); RDW Coefficient Variation 18.6 % (11.7-14.2); Red Blood Cell Count 3.26 M/mm3 (3.80-5.20)
[2022-07-03 05:39] LABS: International Normalized Ratio 2.95; Prothrombin Time Results 29.1 Sec (9.7-11.5)
[2022-07-03 05:53] LABS: Bun/Creatinine Ratio 34.2 (12.0-20.0); Calcium, Blood 8.7 mg/dL (8.5-10.1); Creatinine, Blood 0.88 mg/dL (0.40-1.00); Magnesium, Blood 1.4 mg/dL (1.6-2.4); Phosphorus, Blood 3.1 mg/dL (2.5-4.9); Potassium, Blood 4.4 mmol/L (3.5-5.5)
[2022-07-03 08:18] VITALS: BP 114/72
[2022-07-03 08:28] LABS: BAND PERCENT MAN 6 % (0-8); BASOPHILS PERCENT MAN 1 % (0-2); EOSINOPHILS ABSOLUTE MAN 1.06 K/mm3 (0.00-0.68); EOSINOPHILS PERCENT MAN 10 % (0-6); LYMPHOCYTES ABSOLUTE MAN 1.16 K/mm3 (0.84-5.20); LYMPHOCYTES PERCENT MAN 11 % (21-46); MONOCYTES ABSOLUTE MAN 1.06 K/mm3 (0.16-1.47); MONOCYTES PERCENT MAN 10 % (4-13); MYELOCYTE ABSOLUTE MAN 0.53 K/mm3 (0.00-0.00); MYELOCYTE PERCENT MAN 5 % (0-0); NEUTROPHILS ABSOLUTE MAN 6.67 K/mm3 (1.96-9.15); SEG NEUTROPHILS PERCENT MAN 57 % (41-73); TOTAL CELLS COUNTED 100
--- NOTE | 2022-07-03 08:39 | NUR ---
PT VSS T/O NIGHT; HR AFIB 70'S PER TELE MONITOR. PT DENIED CP/PRESSURE. PT UP OOB W/FWW+SBA, JOSE WELL PT REP HAVING SLEPT WELL AND FEELS STRONGER THIS AM. BEDSIDE REPORT GIVEN TO Analilia HARTLEY RN.
[2022-07-03] MEDS ORDERED: DILT120 PO (12:04)
[2022-07-03] MEDS ORDERED: METO50ER PO (12:05)
--- NOTE | 2022-07-03 12:56 | NUR ---
PATIENT DISCHARGED TO HOME WITH HOME HEALTH, FRIEND RODRIGO WILL DRIVE HER HOME. VERBALIZED UNDERSTANDING OF D/C INSTRUCTIONS. IV SALINE LOCK AND TELEMETRY REMOVED WITHOUT INCIDENT. DRESSED IN OWN CLOTHING WITH ASSISTANCE. ALL QUESTIONS ANSWERED. OFF UNIT VIA W/C AT 1245. NO PERSONAL BELONGINGS LEFT BEHIND IN ROOM.
== END 2022-07-03 12:50 | disposition home health service (06) | DRG 309 ==
LOC: ER 01:45 → MEDS 01:46 → ENPENDDIS 07-03 11:56 → MEDS 07-03 12:50
PROVIDERS: Internal Medicine; ADMIT Student in an Organized Health Care Education/Training Program
DX: I48.91 Unspecified atrial fibrillation (principal); E87.1 Hypo-osmolality and hyponatremia; N17.9 Acute kidney failure, unspecified; E83.42 Hypomagnesemia; N18.30 Chronic kidney disease, stage 3 unspecified; D63.1 Anemia in chronic kidney disease; Z66 Do not resuscitate; E11.22 Type 2 diabetes mellitus with diabetic chronic kidney disease; E78.5 Hyperlipidemia, unspecified; K21.9 Gastro-esophageal reflux disease without esophagitis; F41.8 Other specified anxiety disorders; M54.30 Sciatica, unspecified side; K57.30 Diverticulosis of large intestine without perforation or abscess without bleeding; E86.0 Dehydration; K52.9 Noninfective gastroenteritis and colitis, unspecified; D72.829 Elevated white blood cell count, unspecified; I12.9 Hypertensive chronic kidney disease with stage 1 through stage 4 chronic kidney disease, or unspecified chronic kidney disease; Z20.822 Contact with and (suspected) exposure to COVID-19; Z88.0 Allergy status to penicillin; Z95.2 Presence of prosthetic heart valve; Z88.8 Allergy status to other drugs, medicaments and biological substances; Z79.899 Other long term (current) drug therapy; Z79.82 Long term (current) use of aspirin; Z79.84 Long term (current) use of oral hypoglycemic drugs; Z79.01 Long term (current) use of anticoagulants; Z79.52 Long term (current) use of systemic steroids; Z79.891 Long term (current) use of opiate analgesic; Z86.010 Personal history of colon polyps; Z98.890 Other specified postprocedural states; Z90.710 Acquired absence of both cervix and uterus; Z90.49 Acquired absence of other specified parts of digestive tract; Z98.42 Cataract extraction status, left eye; Z98.41 Cataract extraction status, right eye
CPT/HCPCS: 0241U; 36415; 51701; 71046; 80048; 80053; 81003; 82947; 83735; 83880; 84100; 84145; 84484; 85025; 85610; 93005; 93010; 96365-59; 97110; 97116; 97161; 97165; 97530; 97535; 99285-25; A9270; J1650; J3475; J7030